=== PATIENT | male | born 1950 | race Caucasian/White ===

== ENCOUNTER → 2019-07-20 | Outpatient (CLI) | payer MEDICARE, MEDICAID | LOC: GMAM 10:25 | PROVIDERS: ATTEND Family Medicine | DX: Z12.5 Encounter for screening for malignant neoplasm of prostate (principal) ==

== ENCOUNTER → 2019-07-27 | Outpatient (CLI) | payer MEDICARE, MEDICAID ==
--- NOTE | 2019-07-27 14:12 | US ---
EXAM DESCRIPTION: Soft Tissue,Extremity: ULTRASOUND. CLINICAL HISTORY: 68 years Male UNILATERAL INGUINAL HERNIA. Mass right scrotum. COMPARISON: None Available. TECHNIQUE: Transcutaneous scanning: Ott-scale and Doppler modes. FINDINGS: Scanning of the right inguinal canal with visible mass and palpable mass. Bowel with peristalsis noted within the inguinal canal terminates just above the epididymis and right testicle. Minimal Doppler color vascularity. No distinct cyst or dominant solid mass or large calcifications. IMPRESSION: Large right inguinal canal hernia containing bowel with peristalsis in vascularity. No significant fluid. Electronically signed by: Riky Mcclure MD 07/27/2019 2:11 PM [employer]
== END ==
LOC: US 11:00
PROVIDERS: ATTEND Family Medicine
DX: K40.30 Unilateral inguinal hernia, with obstruction, without gangrene, not specified as recurrent (principal); M51.36 Other intervertebral disc degeneration, lumbar region; M54.12 Radiculopathy, cervical region

== ENCOUNTER → 2019-07-30 | Outpatient (CLI) | payer MEDICARE, MEDICAID ==
--- NOTE | 2019-07-31 09:08 | MRI ---
EXAM DESCRIPTION: Cervical Spine: MRI. CLINICAL HISTORY: 68 years Male RADICULOPATHY COMPARISON: Cervical radiographs 28 June 2019. TECHNIQUE: Multiplanar, high-field MRI, multiple sequences, non-contrast Cervical spine. FINDINGS: C2-C3: Disc desiccation with disc space maintained. Posterior broad-based disc bulge. Posterior endplate ridging. Mild canal narrowing. Bilateral facets are negative. Neuroforamina are patent. Mild canal narrowing. C3-C4: Disc desiccation with anterior endplate changes. Minimal loss of disc space and minimal posterior bulge. Bilateral mild facet arthrosis. Mild canal narrowing. Moderate bilateral neural foraminal narrowing more left than right. C4-C5: Disc desiccation moderate disc space loss anterior bulging and endplate ridging. 4 mm retrolisthesis with disc bulge more to the left of midline than the right abutting the cord and the left C5 nerve. Bilateral uncinate spurs. Borderline left neural foraminal stenosis and moderate right neural foraminal stenosis. Minimal bilateral facet hypertrophic arthrosis. C5-C6: Moderate to severe disc space loss with disc desiccation. Anterior bulging and endplate ridging. Posterior disc osteophyte complex broad-based and abutting the cord and the bilateral C6 nerve roots. Hyperintense T2 annular fissure posterior midline disc. Hypertrophic facet arthrosis on the right. Bilateral posterior ligament thickening. Bilateral mild neural foraminal stenosis. Borderline central canal stenosis. C6-C7: Disc desiccation and posterior disc space loss more than anterior. Posterior broad-based disc bulge with endplate spurs abutting the cord and the bilateral C7 nerve roots. Bilateral mild to moderate neural foraminal narrowing. Mild canal narrowing. C7-T1: Disc desiccation with tiny bulge. Advanced hypertrophic arthrosis right facet and minimal on the left. Minimal right neural foraminal narrowing with left foramen patent. Normal signal in the T1-T2 disc with no bulging. Disc space preserved. Canal and neural foramina are patent. Facet joints negative Spinal alignment unremarkable.. No cord compression or cord edema. Atlantoaxial joint moderate arthrosis.. Base of the cerebellar tonsils is above the foramen magnum. Paravertebral soft tissues unremarkable. Vertebral bodies are not compressed at any level. Otherwise normal marrow signal in the remaining vertebral bodies and the posterior elements. IMPRESSION: 1. Hypertrophic facet arthrosis at multiple levels along with bulging disc and spondylosis most levels affecting the canal and foramina. 2. Posterior spondylosis C4-C5 with disc bulge abutting the left C5 nerve. Also Borderline left neural foraminal stenosis and moderate right neural foraminal stenosis. 3. Posterior spondylosis with disc spur bulge abutting the cord and the bilateral C6 nerve roots. Posterior midline annular fissure. Borderline central canal stenosis. Bilateral mild neural foraminal stenosis. 4. Posterior spondylosis C6-C7 with disc spur bulge posterior abutting the cord and the bilateral C7 nerve roots. Electronically signed by: Riky Mcclure MD 07/31/2019 9:06 AM [facility]
== END | disposition home or self-care (01) ==
LOC: MRI 09:00
PROVIDERS: ATTEND Family Medicine
DX: M54.12 Radiculopathy, cervical region (principal)

== ENCOUNTER → 2019-07-31 | Outpatient (CLI) | payer MEDICARE, MEDICAID ==
--- NOTE | 2019-08-01 09:18 | MRI ---
EXAM DESCRIPTION: Lumbar Spine w/o Contrast : Magnetic Resonance Imaging. CLINICAL HISTORY: OTHER INTERVERTEBRAL DISC DEGENERATION LUMBAR REGION COMPARISON: Lumbar radiographs 28 June 2019. TECHNIQUE: Multiplanar, multiple standard sequences, non contrast MRI, lumbar spine. FINDINGS: L5-S1: The disc is well visualized on axial T2 series 501, image 3. Minimal disc desiccation with disc space maintained. Tiny posterior midline bulge. Bilateral hypertrophic facet arthrosis and flavum ligament thickening more severe on the right. Mild left foraminal narrowing and moderate to severe right foraminal narrowing. L4-L5: Disc space maintained with disc desiccation. Tiny posterior bulge. Hypertrophic facet arthrosis and ligament thickening more severe on the right. Transverse compression of the thecal sac. AP canal diameter 9 cm. Bilateral mild foraminal narrowing. L3-L4: Moderate disc space loss with anterior bulging and endplate ridging. Minimal posterior bulging. Bilateral hypertrophic facet arthrosis and flavum ligament thickening more advanced on the right with transverse compression of the thecal sac. AP canal diameter 10 mm. Moderate narrowing of the left foramen and mild narrowing of the right foramen. L2-L3: Moderate endplate reactive changes and spondylosis to the left of midline and anterior with narrowing of the disc spaces. Grade 1 retrolisthesis. Minimal posterior bulging of the disc remnant. Bilateral hypertrophic facet arthrosis and ligament thickening with transverse compression of the thecal sac. Moderate right foraminal narrowing and mild left foraminal narrowing. L1-L2: Marked disc space loss Advanced endplate changes and spondylosis left of midline and retrolisthesis. Minimal bulging of the rudimentary disc. Schmorl's nodes in the superior and inferior endplates. Hypertrophic facet arthrosis and ligament thickening bilaterally. Canal is patent. Mild foraminal narrowing on the left and right foramen patent. Circumscribed hyperintense T1 and T2 hemangioma in the L1 vertebral body T12-L1: Disc desiccation minimal disc space loss and posterior midline bulge. Minimal hypertrophy of the posterior facets and ligaments. Mild canal narrowing. Mild narrowing left foramen and right foramen patent. L1-L4 dextroscoliosis. Paravertebral soft tissues minimal muscle atrophy.. Distal cord normal signal and caliber. Otherwise normal marrow signal in the remaining vertebral bodies and the posterior elements. Vertebral bodies are not compressed at any level. IMPRESSION: 1. Degenerative scoliosis, multiple levels of spondylosis usually unilateral. Multiple levels of hypertrophic facet arthrosis and thickening of the posterior flavum ligaments. Minimal spondylolisthesis. 2. Mild canal narrowing at L5-S1 with posterior hypertrophic elements and severe right foraminal narrowing. 3. Multifactorial mild central canal stenosis L4-L5. Bilateral mild foraminal narrowing. 4. Borderline mild central canal stenosis L3-L4 which is multifactorial. Moderate narrowing of the left foramen. Electronically signed by: Riky Mcclure MD 08/01/2019 9:16 AM [facility]
== END | disposition home or self-care (01) ==
LOC: MRI 09:00
PROVIDERS: ATTEND Family Medicine
DX: M54.12 Radiculopathy, cervical region (principal); M51.36 Other intervertebral disc degeneration, lumbar region

== ENCOUNTER → 2019-08-16 | Outpatient (CLI) | payer MEDICARE, MEDICAID ==
--- NOTE | 2019-08-16 16:01 | CT ---
Study: CT Chest. Indication: NODULE Technique: CT imaging of the chest obtained after intravenous administration of contrast. This exam was performed according to our departmental dose-optimization program, which includes automated exposure control, adjustment of the mA and/or kV according to patient size and/or use of iterative reconstruction technique. Comparison: None Findings: Atherosclerosis aorta and coronary arteries. Heart size normal. No pathologically enlarged adenopathy. Degenerative changes of the spine noted. No consolidation, pleural effusion, pneumothorax. Several scattered tiny sub-5 mm pleural-based noncalcified pulmonary nodules noted throughout the bilateral lungs. In addition, there are several tiny sub-4 mm noncalcified pulmonary nodules throughout the lungs which are not pleural-based. For reference, on image 71 in the lateral aspect of the left upper lobe is a 3 mm nodule. Impression: Several scattered noncalcified tiny pulmonary nodules. If no risk factors, no additional follow-up required. If positive risk factors, follow-up CT can be performed in one year. Atherosclerosis. Electronically signed by: Clive Aaron MD 08/16/2019 3:59 PM [facility]
== END ==
LOC: CT 11:06
PROVIDERS: ATTEND Family Medicine
DX: R91.8 Other nonspecific abnormal finding of lung field (principal)

== ENCOUNTER → 2020-08-04 | Outpatient (CLI) | payer MEDICARE, MEDICAID | LOC: YCFC.O 10:01 | PROVIDERS: ATTEND Nurse Practitioner Family | DX: R53.83 Other fatigue (principal); E78.00 Pure hypercholesterolemia, unspecified; N40.1 Benign prostatic hyperplasia with lower urinary tract symptoms; E53.8 Deficiency of other specified B group vitamins ==